=== PATIENT | female | born 1985 | race African-American/Black ===

== ENCOUNTER → 2024-01-14 11:32 | Outpatient (REF) | payer OTHER, SELFPAY ==
[2024-01-14 15:44] LABS: Hepatitis B Surface Antibody Positive
[2024-01-17 00:06] LABS: Quantiferon Mitogen minus NIL >10.00 IU/mL; Quantiferon NIL 0.01 IU/mL; Quantiferon Plus TB2 minus NIL 0.01 IU/mL (0.00-0.34); Quantiferon TB Gold Plus Negative (Negative)
== END ==
LOC: OHS 11:32
PROVIDERS: ATTENDING PHYSICIAN Nurse Practitioner Family
DX: Z23 Encounter for immunization (principal)
CPT/HCPCS: 36415; 86480; 86706; 86787